=== PATIENT | male | born 1975 | race Hispanic/Latino ===

== ENCOUNTER 2018-11-12 15:44 | Inpatient (IN) | payer OTHER ==
[~2018-11-12] VITALS: Ht 177.8 cm; Wt 100.5 kg
[2018-11-12] MEDS ORDERED: MORPHINE SULFATE INJ 4 MG/ML INJ 1ML IV NR (16:15)
[2018-11-12 16:26] LABS: BASOPHILS % 0.2 % (0.0-1.0); EOSINOPHILS % 0.1 % (0.0-6.0); HEMATOCRIT 40.9 % (38.2-49.6); HEMOGLOBIN 12.1 g/dL (14.0-18.0); LYMPHOCYTES # (AUTO) 0.9 (1.0-3.2); LYMPHOCYTES % 6.8 % (18.0-39.1); MEAN CORPUSCULAR HEMOGLOBIN 26.9 pg (28-32); MEAN CORPUSCULAR HGB CONC 29.6 g/dL (31-35); MEAN CORPUSCULAR VOLUME 91.1 fL (81-99); MONOCYTES # (AUTO) 1.2 (0.2-0.8); NEUTROPHILS # (AUTO) 10.6 (2.1-6.9); NEUTROPHILS % 82.8 % (38.7-80.0); PLATELET COUNT 404 x10e3/uL (140-360); RED BLOOD COUNT 4.49 x10e6/uL (4.3-5.7); RED CELL DISTRIBUTION WIDTH 15.1 % (11.7-14.4)
[2018-11-12 16:38] LABS: INR 1.09; PROTHROMBIN TIME 15.1 seconds (11.9-14.5)
[2018-11-12 16:39] LABS: PARTIAL THROMBOPLASTIN TIME 29.7 seconds (23.8-35.5)
[2018-11-12 16:51] LABS: ALANINE AMINOTRANSFERASE 46 IU/L (0-55); ALBUMIN 1.5 g/dL (3.5-5.0); ALBUMIN/GLOBULIN RATIO 0.3 (0.8-2.0); ALKALINE PHOSPHATASE 151 IU/L (40-150); BLOOD UREA NITROGEN 14 mg/dL (7-26); BUN/CREATININE RATIO 21 (6-25); CALCIUM 9.3 mg/dL (8.4-10.2); CARBON DIOXIDE 20 mmol/L (22-29); CHLORIDE 97 mmol/L (98-107); CREATININE, SERUM 0.68 mg/dL (0.72-1.25); EST GLOMERULAR FILTRATION RATE > 60 ML/MIN (60-); GLUCOSE 114 mg/dL (74-118); SODIUM 138 mmol/L (136-145)
[2018-11-12] MEDS ORDERED: FAMOTIDINE 20 MG/2 ML VIAL IV STA (16:56)
[2018-11-12] MEDS ORDERED: ALBUMIN 25% 25GM 100ML 0.25 GM/ML BTL IV ONE ×2 (17:00→17:15)
[2018-11-12] MEDS ORDERED: SODIUM CHLORIDE 0.9% 1000ML 2,000 ML IV ONE (17:00)
--- NOTE | 2018-11-12 17:03 | Diagnostic Imaging Report ---
EXAMINATION: CHEST SINGLE (PORTABLE) INDICATION: Shortness of breath. Pleural effusion ^SOB, Pleural Effusions COMPARISON: None FINDINGS: TUBES and LINES: None. LUNGS: Complete opacification of the right hemithorax. Ill-defined opacity in the left lower lung. PLEURA: Likely large right pleural effusion. No pneumothorax is seen. HEART AND MEDIASTINUM: The cardiomediastinal silhouette is obscured BONES AND SOFT TISSUES: No acute osseous lesion. Soft tissues are unremarkable. UPPER ABDOMEN: No free air under the diaphragm. IMPRESSION: Complete opacification of the right hemithorax with likely large right pleural effusion. Ill-defined opacity in the left lower lung could be due to developing pneumonia. Follow-up imaging is indicated to document clearing. Signed by: Dr. hSane Flores M.D. on 11/12/2018 4:59 PM
[2018-11-12] MEDS ORDERED: SUCCINYLCHOLINE CHLORIDE 20 MG/ML 10ML VIAL ONE (18:10)
[2018-11-12] MEDS ORDERED: ETOMIDATE 2 MG/ML 10 ML INJ IV ONE (18:10)
[2018-11-12] MEDS ORDERED: LIDOCAINE 2%/ EPINEPHRINE 20ML MDV ONE (18:19)
[2018-11-12] MEDS ORDERED: HYDROMORPHONE 1MG/1ML INJ IV STA (18:24)
--- NOTE | 2018-11-12 18:30 | NUR ---
IN ROOM WITH ER MD FOR CHEST TUBE PLACEMENT. PATIENT C/O PAIN TO TUBE INSERTION SITE. MEDICATED WITH PAIN MEDS DIRECTED BY ER MD. PATIENT BECAME INCREASINGLY DIAPHERETIC AND LETHARGIC. CHEST TUBE SECURED AND THEN CHANGE IN LOC OF PATIENT. ER MD SPOKE WITH PATIENT FAMILY AND WAS ADVISED THAT THEY DID WANT PATIENT TO BE INTUBATED. PATIENT CONNECTED TO CRASH CART, INTUBATED BY ER MD. PATIENT INTUBATED AND HAS SEDATION/PAIN CONTROL MEDS INFUSING ORDERED. PATIENT FAMILY IN HALLWAY. ER MD SPOKE WITH FAMILY POST INTUBATION.
[2018-11-12] MEDS ORDERED: HYDROMORPHONE 2MG/ML 2 MG/ML ML ONE (18:31)
[2018-11-12] MEDS ORDERED: NALOXONE HCL INJ 0.4 MG/ML AMP ONE (18:55)
[2018-11-12] MEDS ORDERED: SUCCINYLCHOLINE 200 MG/10 ML SYR IV NR (19:00)
[2018-11-12] MEDS ORDERED: ETOMIDATE 2 MG/ML 10 ML INJ IV STA (19:00)
[2018-11-12] MEDS ORDERED: NALOXONE HCL INJ 0.4 MG/ML AMP IV NR (19:00)
--- NOTE | 2018-11-12 19:00 | NUR ---
pt became unresponsive after chest tube insertion, md at bedside.
--- NOTE | 2018-11-12 19:06 | Diagnostic Imaging Report ---
EXAMINATION: CHEST SINGLE (PORTABLE) INDICATION: Chest tube placement ^POST CHEST TUBE PLACEMENT ^Y COMPARISON: November 12, 2018 earlier the same day FINDINGS: TUBES and LINES: Right chest tube over the lower right chest LUNGS: Complete opacification of the right hemithorax. Ill-defined opacity in the left lower lung. There is no evidence of pneumonia or pulmonary edema. PLEURA: Likely large right pleural effusion. No pneumothorax is seen. HEART AND MEDIASTINUM: The cardiomediastinal silhouette is obscured BONES AND SOFT TISSUES: No acute osseous lesion. Soft tissues are unremarkable. UPPER ABDOMEN: No free air under the diaphragm. IMPRESSION: Right chest tube over the lower right chest. The distal tip projects just lateral to the right lower thoracic spine. Complete opacification of the right hemithorax with likely large right pleural effusion. Ill-defined opacity in the left lower lung could be due to developing pneumonia. Follow-up imaging is indicated to document clearing. Signed by: Dr. Shane Flores M.D. on 11/12/2018 7:02 PM
[2018-11-12] MEDS ORDERED: MIDAZOLAM HCL 25 MG in SODIUM CHLORIDE 0.9% 50ML 45 ML IV PRN (19:15)
[2018-11-12] MEDS ORDERED: FENTANYL CITRATE INJ 2,000 MCG in SODIUM CHLORIDE 0.9% 250ML 210 ML IV PRN (19:15)
[2018-11-12] MEDS: MIDAZOLAM HCL 25 MG in SODIUM CHLORIDE 0.9% 45 ML IV PRN ×2 (19:20→20:44)
--- NOTE | 2018-11-12 19:20 | NUR ---
pt increasingly agitated, making movements toward ET, received orders for restraints per dr capone. applied per orders to bilat wrists.
[2018-11-12] MEDS: FENTANYL CITRATE INJ 2000 MCG in SODIUM CHLORIDE 0.9% 210 ML IV PRN ×2 (19:25→20:45)
--- NOTE | 2018-11-12 19:25 | NUR ---
rocuronium given per orders.
[2018-11-12] MEDS ORDERED: ROCURONIUM BROMIDE 10 MG/ML 5ML VIAL IV NR (19:30)
[2018-11-12] MEDS ORDERED: DEXTROSE 5%/0.9% SOD CHL 1,000 ML IV ONE ×2 (19:30→23:04)
[2018-11-12] MEDS ORDERED: ONDANSETRON HCL INJ 2MG/ML 2ML 2 MG/ML VIAL IV PRN (19:30)
[2018-11-12] MEDS ORDERED: SODIUM CHLORIDE FLUSH 10 ML SYR INJ PRN (19:30)
--- NOTE | 2018-11-12 19:30 | NUR ---
+ effects of rocuronium noted, no longer making movements toward ET.
--- NOTE | 2018-11-12 19:30 | Diagnostic Imaging Report ---
EXAMINATION: CHEST SINGLE (PORTABLE) INDICATION: Intubation ^[id number] ^1900 ^S/P INTUBATION COMPARISON: November 12, 2017 from earlier the same day FINDINGS: TUBES and LINES: Endotracheal tube with distal tip 2 cm above the alfa. Right chest tube over the lower right chest. The distal tip projects just lateral to the right lower thoracic spine. LUNGS: Slight improved aeration of the right hemithorax. Ill-defined opacity in the left lower lung. PLEURA: Likely large right pleural effusion. No pneumothorax is seen. HEART AND MEDIASTINUM: The cardiomediastinal silhouette is obscured BONES AND SOFT TISSUES: No acute osseous lesion. Soft tissues are unremarkable. UPPER ABDOMEN: No free air under the diaphragm. IMPRESSION: Endotracheal tube with distal tip 2 cm above the alfa. Right chest tube over the lower right chest. The distal tip projects just lateral to the right lower thoracic spine. Slight improved aeration of the right hemithorax with likely large right pleural effusion. Ill-defined opacity in the left lower lung could be due to developing pneumonia. Follow-up imaging is indicated to document clearing. Signed by: Dr. Shane Flores M.D. on 11/12/2018 7:27 PM
--- NOTE | 2018-11-12 19:40 | NUR ---
restraints dc'd, family at bedside.
[2018-11-12] MEDS ORDERED: MORPHINE SULFATE INJ 4 MG/ML INJ 1ML IV PRN (19:45)
[2018-11-12 20:41] LABS: BASOPHILS % 0.2 % (0.0-1.0); EOSINOPHILS % 0.1 % (0.0-6.0); HEMATOCRIT 43.8 % (38.2-49.6); HEMOGLOBIN 12.5 g/dL (14.0-18.0); LYMPHOCYTES # (AUTO) 1.5 (1.0-3.2); LYMPHOCYTES % 9.1 % (18.0-39.1); MEAN CORPUSCULAR HEMOGLOBIN 26.8 pg (28-32); MEAN CORPUSCULAR HGB CONC 28.5 g/dL (31-35); MEAN CORPUSCULAR VOLUME 93.8 fL (81-99); MONOCYTES # (AUTO) 1.5 (0.2-0.8); NEUTROPHILS # (AUTO) 13.4 (2.1-6.9); NEUTROPHILS % 79.7 % (38.7-80.0); PLATELET COUNT 474 x10e3/uL (140-360); RED BLOOD COUNT 4.67 x10e6/uL (4.3-5.7); RED CELL DISTRIBUTION WIDTH 15.2 % (11.7-14.4)
[2018-11-12 20:42] LABS: ANION GAP 27.9 mmol/L (8-16); BLOOD UREA NITROGEN 15 mg/dL (7-26); BUN/CREATININE RATIO 21 (6-25); CALCIUM 9.7 mg/dL (8.4-10.2); CARBON DIOXIDE 19 mmol/L (22-29); CHLORIDE 98 mmol/L (98-107); CREATININE, SERUM 0.71 mg/dL (0.72-1.25); EST GLOMERULAR FILTRATION RATE > 60 ML/MIN (60-); GLUCOSE 119 mg/dL (74-118); POTASSIUM 4.9 mmol/L (3.5-5.1); SODIUM 140 mmol/L (136-145)
--- NOTE | 2018-11-12 20:45 | NUR ---
pt making movements toward ET, family at bedside, easily redirected with verbal intervention, appears somewhat agitated. titrated versed to 4mg/h and fentanyl to 50mcg/h. family states they will remain at bedside and press call elder if unable to redirect
[2018-11-12 20:46] LABS: INR 1.09; PARTIAL THROMBOPLASTIN TIME 25.5 seconds (23.8-35.5); PROTHROMBIN TIME 15.1 seconds (11.9-14.5)
[2018-11-12 21:02] LABS: ABG HCO3 20 mmol/L (23-28); ABG PCO2 44 mmHg (41-51); ABG PH 7.26 (7.31-7.41); ABG PO2 162 mmHg (80-105)
--- OUTSIDE RECORDS SUMMARY | 2018-11-12 21:24 | XMS REPORT ---
Author Author [facility] Address Unknown Phone Unavailable Care Team Providers Care Internet Marketing Assistant Name Role Phone Donis MEYER Unavailable Unavailable Problems This patient has no known problems. Allergies, Adverse Reactions, Alerts This patient has no known allergies or adverse reactions. Medications This patient has no known medications. Results Test Description Test Time Test Comments Text Results Atomic Results Result Comments CHEST SINGLE (PORTABLE) 2018-11-12 19:24:00 [place] [address] Patient Name: ELIANE CABRERA MR #: [id number] : 1975 Age/Sex: 42/M Req #: [id number] Adm Physician: Ordered by: NISHANT MEYER MD Report #: [id number] Location: ER Room/Bed: Procedure: [id number] DX/CHEST SINGLE (PORTABLE) Exam Date: 11/12/18 Exam Time: 1900 REPORT STATUS: Signed EXAMINATION: CHEST SINGLE (PORTABLE) JAMES CATION: Intubation [id number] S/P INTUBATION COMPARISON: November 12, 2017 from earlier the same day FINDINGS: TUBES and LINES: Endotracheal tube with distal tip 2 cm above the alfa. Right chest tube over the lower right chest. The distal tip projects just lateral to the right lower thoracic spine. LUNGS: Slight improved aeration of the right hemithorax. Ill-defined opacity in the left lower lung. PLEURA: Likely large right pleural effusion. No pneumothorax is seen. HEART AND MEDIASTINUM: The cardiomediastinal silhouette is obscured BONES AND SOFT TISSUES: No acute osseous lesion. Soft tissues are unremarkable. UPPER ABDOMEN: No free air under the diaphragm. IMPRESSION: Endotracheal tube with distal tip 2 cm above the alfa. Right chest tube over the lower right chest. The distal tip projects just lateral to the right lower thoracic spine. Slight improved aeration of the right hemithorax with likely large right pleural effusion. Ill-defined opacity in the left lower lung could be due to developing pneumonia. Follow-up imaging is indicated to document clearing. Signed by: Dr. Shane Flores M.D. on 11/12/2018 7:27 PM Dictated By: SHANE FLORES MD, MD 26 Transcribed By: VERONICA on 11/12/181926 COPY TO: NISHANT MEYER MD CHEST SINGLE (PORTABLE) 2018-11-12 19:01:00 [place] [address] Patient Name: ELIANE CABRERA MR #: [id number] : 1975 Age/Sex: 42/M Req #: [id number] Adm Physician: Ordered by: NISHANT MEYER MD Report #: [id number] Location: ER Room/Bed: Procedure: [id number] DX/CHEST SINGLE (PORTABLE) Exam Date: Exam Time: REPORT STATUS: Signed EXAMINATION: CHEST SINGLE (PORTABLE) INDICATION: Chest tube placement POST CHEST TUBE PLACEMENT Y COMPARISON: November 12, 2018 earlier the same day FINDINGS: TUBES and LINES: Right chest tube over the lower right chest LUNGS: Complete opacification of the right hemithorax. Ill-defined opacity in the left lower lung. There is no evidence of pneumonia or pulmonary edema. PLEURA: Likely large right pleural effusion. No pneumothorax is seen. HEART AND MEDIASTINUM: The cardiomediastinal silhouette is obscured BONES AND SOFT TISSUES: No acute osseous lesion. Soft tissues are unremarkable. UPPER ABDOMEN: No free air under the diaphragm. IMPRESSION: Right chest tube over the lower right chest. The distal tip projects just lateral to the right lower thoracic spine. Complete opacification of the right hemithorax with likely large right pleural effusion. Ill-defined opacity in the left lower lung could be due to developing pneumonia. Follow-up imaging is indicated to document clearing. Signed by: Dr. Shane Flores M.D. on 11/12/2018 7:02 PM Dictated By: SHANE FLORES MD, MD 01 Transcribed By: VERONICA on 11/12/181901 COPY TO: NISHANT MEYER MD CHEST SINGLE (PORTABLE) 2018-11-12 16:58:00 [place] [address] Patient Name: ELIANE CABRERA MR #: [id number] : 1975 Age/Sex: 42/M Req #: [id number] Adm Physician: Ordered by: NISHANT MEYER MD Report #: [id number] Location: ER Room/Bed: Procedure: [id number] DX/CHEST SINGLE (PORTABLE) Exam Date: 11/12/18 Exam Time: 1640 REPORT STATUS: Signed EXAMINATION: CHEST SINGLE (PORTABLE) INDICATION: Shortness of breath. Pleural effusion SOB, Pleural Effusions COMPARISON: None FINDINGS: TUBES and LINES: None. LUNGS: Complete opacification of the right hemithorax. Ill-defined opacity in the left lower lung. PLEURA: Likely large right pleural effusion. No pneumothorax is seen. HEART AND MEDIASTINUM: The cardiomediastinal silhouette is obscured BONES AND SOFT TISSUES: No acute osseous lesion. Soft tissues are unremarkable. UPPER ABDOMEN: No free air under the diaphragm. IMPRESSION: Complete opacification of the right hemithorax with likely large right pleural effusion. Ill-defined opacity in the left lower lung could be due to developing pneumonia. Follow-up imaging is indicated to document clearing. Signed by: Dr. Shane Flores M.D. on 11/12/2018 4:59 PM Dictated By: SHANE FLORES MD, MD Transcribed By: VERONICA on 11/12/181658 COPY TO: NISHANT MEYER MD
[2018-11-12] MEDS ORDERED: ACETAMINOPHEN 1000 MG/100 ML IV PRN (23:45)
[2018-11-13] VITALS (23 sets, daily range): BP systolic 99–167; BP diastolic 61–82
[2018-11-13] MEDS ORDERED: ATORVASTATIN CA10 MG PO (01:28)
[2018-11-13] MEDS ORDERED: OXCARBAZEPINE300 MG PO (02:09)
[2018-11-13] MEDS ORDERED: OLANZAPINE5 MG PO (02:09)
[2018-11-13] MEDS ORDERED: PROPRANOLOL HCL10 MG PO (02:10)
[2018-11-13] MEDS ORDERED: TRAZODONE HCL50 MG PO (02:11)
[2018-11-13] MEDS ORDERED: NORCO 5-325 TA1 EACH PO (02:11)
[2018-11-13] MEDS ORDERED: MIDAZOLAM HCL 5 MG/ML VIAL ONE (03:30)
[2018-11-13] MEDS ORDERED: SODIUM CHLORIDE 0.9% 50ML 50 ML ONE (03:31)
[2018-11-13] MEDS: MIDAZOLAM HCL 25 MG in SODIUM CHLORIDE 0.9% 45 ML IV PRN (03:31)
--- NOTE | 2018-11-13 03:42 | NUR ---
In family history, pt's sister Radha mentioned pt having an estranged son. Asked Radha to find papers stating POA or conservatorship, or to contact son for legal next of kin. Charge nurse notified
[2018-11-13] MEDS ORDERED: SODIUM CHLORIDE 0.9% 1000ML 1,000 ML ONE (07:33)
--- NOTE | 2018-11-13 10:20 | NUR ---
ASSESSMENT: Spiritual distress Pt's [id number], Rylee, at bedside. Pt's MINI states pt has an estranged son who is aware of father's illness. Pt's MINI expressed emotions thru words and tears. Intervention: Provided empathic listening. Facilitated illness review and exploration of resources. Provided prayer. Outcome: Will follow as able. CRISTOPHER MELENDEZ Management Lecturer Spiritual Care Department O: [phone] Pager: [phone] ([phone] number calling from)
--- NOTE | 2018-11-13 12:49 | NUR ---
PT SON IS MAYA [phone], HE IS DECISION MAKER NEXT OF KIN AND STATES HE WILL BE DISCUSSING EVERYTHING WITH HIS AUNTS ERNA ROMAN OR HIS UNCLE KEI. SIGNED CHOICE FOR [facility]. CALLED NENITA BRAR [phone] WITH [facility], THEY WILL SEND A REP TO SPEAK WITH THE FAMILY AND SET UP A FACILITY FOR ACCEPTANCE. WILL LET ME WHEN COMPLETED.
--- NOTE | 2018-11-13 15:00 | NUR ---
Son verbalized he wants his uncle to be POA. witnessed by Liset Pereyra RN and Deborah RICHARDSONnetwork project manager. will notify Dr. Perez for further orders
[2018-11-13] MEDS ORDERED: MORPHINE SULFATE 2 MG/ML SYR 1ML IV PRN (16:00)
[2018-11-13] MEDS ORDERED: LORAZEPAM INJ 2 MG/ML VIAL IV PRN (16:00)
--- NOTE | 2018-11-13 16:05 | NUR ---
PT IS DNR AND INFORMED DR GEOFFREY VINSON MEETING AT 10 AM IN MORNING. MAYA (SON) HAS DECIDED THAT IT IS OKAY FOR HIS UNCLE EPI CAN BE THE RESPONSIBLE ONE TO MAKE DECISIONS FROM NOW ON. MAYA EXPRESSED THIS TO MYSELF, THE NURSE AND DR HENRY.
--- NOTE | 2018-11-13 16:15 | NUR ---
Pt terminally extubated at this time. Dr. Perez on unit. will continue to monitor
--- NOTE | 2018-11-13 16:18 | NUR ---
Nutrition Intervention Note RD Recommendation(s) for Physician: - Pt change in pt status, recommend feeding tube placement and initiating TF of Vital HP at 10 ml/hr. Advance as tolerated to goal rate of 70 ml/hr (to provide 1680 kcal and 147 gm protein per day). - Water flushes and fluid management per MD. Plan of Care: RD following, TF rec's, monitoring for tolerance and adequacy Nutrition reason for involvement: Nutrition Risk Trigger- NPO on vent RD Assessment 11/13: 42 YOM admitted for papillary thyroid carcinoma and reported difficulty breathing requiring intubation upon admission. No H&P available per chart and no prior admits noted. Pt remains sedated on vent with no pressors currently, pt's sisters at bedside report the pt has had a poor appetite x 3 weeks and has lost about 15# within the past 3 mo. No GI distress reported, however the pt reported to his sister that he had abdominal pain associated with "the tube". Pt discussed during am rounds, pt with possible hospice placement. Chart reviewed. Will monitor and continue to follow. Principal Problems/Diagnoses: Papillary thyroid carcinoma PMH: No H&P available GI: WDL Skin: WDL Labs: 11/13: Na 140, K 4.9, BUN 15, Cr 0.71, Gluc 119 Meds: versed, fentanyl Ht: 70 in Wt: 221.5 lb BMI: 31.8 IBW: 166 lb Malnutrition Evaluation (11/13/18) The patient does not meet criteria for a specified degree of malnutrition at this time. Will re-evaluate at follow-up as appropriate. Energy intake: <75% of estimated energy requirements for >7 days Weight loss: 6.4% loss in 3 mo- no significant change Fat loss:none Muscle loss:none Supporting Evidence: Fluid accumulation: none observed Functional Status: unable to evaluate Nutrition Prescription (Diet Order): NPO Estimated Nutritional Needs: 9203-3037 calories/day (22-25 kcal/kg IBW) 113-151 g protein/day (1.5-2 g pro/kg IBW) Diet Adequacy: Not meeting calorie needs, Not meeting protein needs Diet Education Needs Assessment: Diet education not indicated, patient on temporary/transition diet. Nutrition Care Level: Mod Nutrition Diagnosis: Inadequate energy and protein intake related to impaired gastric passaged as evidenced by intubation and currently NPO. Goal: Patient will meet 75-100% of estimated needs by follow up Progress: N/A Interventions: Composition, Rate, Route Monitoring/Evaluation: Total energy intake, Total protein intake, Formula/Solution, IVF, Prescription medication Signed: Kelly Vogel RD, PETTY, [facility]
--- NOTE | 2018-11-13 17:34 | History and Physical ---
PRIMARY CARE PROVIDER: Dr. Sadi Gaston. CHIEF COMPLAINT: Shortness of breath, respiratory distress. HISTORY OF PRESENT ILLNESS: Mr. 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 After intubation the family indicated that the patient was supposed to be DNR and that his thyroid cancer is terminal, MD Alvarado says there is no further treatment. Unfortunately, the son was not present to, who is the next of kin; so, the patient had to be made a full code and was intubated and sent to the ICU. Today the son is here with the rest of his family present and has decided to make him a DNR, terminally extubate, and has requested a hospice consult. REVIEW OF SYSTEMS: Unobtainable as the patient is intubated. PAST MEDICAL HISTORY: Significant for hypertension and stage IV thyroid cancer. FAMILY HISTORY: Unremarkable. SOCIAL HISTORY: Unremarkable. PHYSICAL EXAMINATION GENERAL: The patient is sedated. He is orally intubated with an NG tube. VITAL SIGNS: Blood pressure 117/64, pulse 113 and regular, respiratory rate 20 on the ventilator with 100% O2 saturation, temperature 98.9. HEENT: His head is atraumatic. His eyes are anicteric. He is orally intubated with an NG tube. NECK: Supple with no mass or thyromegaly. LYMPHATIC SYSTEM: He has no palpable cervical, axillary or inguinal adenopathy. CARDIOVASCULAR: His heart has a regular rate and rhythm without murmur or extra heart sound. He is tachycardic. RESPIRATORY: He has markedly decreased breath sounds on the right, a fair amount of air movement on the left. The patient is currently ventilated. GASTROINTESTINAL: His abdomen is soft without organomegaly, masses or tenderness. CUTANEOUS: His skin is warm and dry to the touch with no rash or skin breakdown. MUSCULOSKELETAL: His joints are in normal alignment without erythema or swelling. He has no calf tenderness. NEUROLOGIC: Exam is nonfocal when not sedated. He moves all extremities. DIAGNOSTIC STUDIES: Chest x-ray shows right lung opacification, probably due to effusion. An attempt was made in the ER to drain the effusion, but it appeared to be coagulated blood. His CBC shows a white count of 16.7 with 80% neutrophils, hemoglobin 12.5, hematocrit 43.8, platelet count of 474,000. His chemistry shows normal electrolytes, CO2 19, creatinine 0.71, BUN 15, normal GFR, glucose is 119. Transaminases, bilirubin are normal, alk phos 151. IMPRESSION AND PLAN 1. Stage IV thyroid cancer. The family is at the bedside. The son, who is next of kin, is requesting DNR, terminal extubation and hospice consult. 2. Hypertension. The patient is currently normotensive. Will hold any blood pressure medications. 3. For prophylaxis, he is on IV Pepcid. DISPOSITION: The patient will be extubated. He is DNR. Will continue IV fentanyl and Diprivan initially. Orders have been given also for IV morphine and Ativan should the patient last long enough to be transferred out of the unit. Sixty minutes spent with family discussing the patient's case, examining the patient and dictating this H&P. Job#: [id number] EV
--- NOTE | 2018-11-13 19:00 | NUR ---
RECEIVED REPORT FROM OFF GOING NURSE WILLA RN, PT HAVING APNEIC EPISODES. FAMILY AT BEDSIDE, PT DNR, CHARGE NURSE AWARE OF PT'S STATUS WELL PCP.
[2018-11-13] MEDS ORDERED: SODIUM CHLORIDE 0.9% 250ML 250 ML ONE (19:18)
--- NOTE | 2018-11-13 19:35 | NUR ---
pt's heart rate dropping from 102 to 60's -40's. family aware pt is dying, they just want to be at pt;s bedside.Reassurance provided
--- NOTE | 2018-11-13 19:40 | NUR ---
Pt now , ER doctor called to pronounce pt , family gathering around the pt, Family request that the home not be called just yet to allow them time to spend with the family, and other family members coming to see body as well.
--- NOTE | 2018-11-13 19:50 | NUR ---
pt nonresponsive, family members at bedside, pt able to with draw from painful stimuli. pt having apnea episodes.
--- NOTE | 2018-11-13 23:40 | NUR ---
[facility] here to transfer body to home, Witnessed by Quita RICHARDSON and Deborah RICHARDSON, all personel belongings taken by family members.
== END 2018-11-13 19:40 | disposition expired | DRG 208 ==
LOC: ER 15:44 → ERHOLD 21:21 → ICU 23:56
PROVIDERS: ADMIT Internal Medicine; ATTEND Internal Medicine
PROC: 5A1935Z Respiratory Ventilation, Less than 24 Consecutive Hours (ICD-10-PCS; principal; 2018-11-12)
PROC: 0BH17EZ Insertion of Endotracheal Airway into Trachea, Via Natural or Artificial Opening (ICD-10-PCS; 2018-11-12)
PROC: 0W9930Z Drainage of Right Pleural Cavity with Drainage Device, Percutaneous Approach (ICD-10-PCS; 2018-11-12)
DX: J96.01 Acute respiratory failure with hypoxia (principal); C78.02 Secondary malignant neoplasm of left lung; C78.01 Secondary malignant neoplasm of right lung; J91.0 Malignant pleural effusion; C73 Malignant neoplasm of thyroid gland; I10 Essential (primary) hypertension; Z66 Do not resuscitate; Z51.5 Encounter for palliative care; Z78.1 Physical restraint status
CPT/HCPCS: 31500; 36415; 36600; 51700; 71045; 80048; 80053; 82805; 83880; 84484; 85025; 85610; 85730; 86850; 86900; 94002; 94003; 99285; J0330; J2001; J2060; J2250; J2270; J2310; J7030; J7042; J7050; P9047